=== PATIENT | male | born 2000 | race Caucasian/White ===

== ENCOUNTER 2019-03-29 09:24 | Emergency (ER) | payer OTHER ==
[~2019-03-29] VITALS: Ht 165.1 cm; Wt 59.1 kg
[2019-03-29 09:45] VITALS: Ht 165.1 cm; Wt 59.1 kg
[2019-03-29 10:38] LABS: BASOPHIL % 0.2 % (0-2); PLATELET COUNT 312 x10^3mcL (130-400); RED CELL DISTRIBUTION WIDTH 11.5 % (11.5-14.5)
[2019-03-29 10:43] LABS: CALCIUM 9.5 mg/dL (8.5-10.1); CARBON DIOXIDE 29.6 mmol/L (21-32); CHLORIDE SERUM 103 mmol/L (98-107); CREATININE SERUM 0.9 mg/dL (0.7-1.3); GFR1 > 60 mL/min; GLUCOSE SERUM 96 mg/dL (74-106); POTASSIUM SERUM 4.2 mmol/L (3.5-5.1); SODIUM SERUM 141 mmol/L (136-145)
[2019-03-29 10:48] LABS: ALBUMIN 4.7 g/dL (3.4-5.0); ALKALINE PHOSPHATASE 54 U/L (46-116); ALT/SGPT 26 U/L (16-63); AST/SGOT 16 U/L (15-37); BILIRUBIN TOTAL 4.4 mg/dL (0.20-1.00); LIPASE 107 IU/L (73-393)
[2019-03-29 10:50] LABS: TOTAL PROTEIN, SERUM 8.4 g/dL (6.4-8.2)
[2019-03-29 14:30] VITALS: BP 120/74
== END 2019-03-29 14:30 | disposition home or self-care (01) ==
LOC: ED 09:24
PROVIDERS: Emergency Medicine
DX: R10.13 Epigastric pain (principal); E80.6 Other disorders of bilirubin metabolism; Z90.89 Acquired absence of other organs
CPT/HCPCS: J2405; Q0092; Q9967